=== PATIENT | male | born 1945 | race Caucasian/White ===

== ENCOUNTER 2017-07-08 14:25 | Day surgery (SDC) | payer MEDICARE, MEDICAID ==
[~2017-07-08] VITALS: Ht 185.4 cm; Wt 78.7 kg
[2017-07-08 15:00] VITALS: BP 107/69
[2017-07-08] MEDS ORDERED: LORazepam 0.5 MG tablet PO PRN (15:25)
[2017-07-08] MEDS ORDERED: LIDOcaine/PRILOcaine 5gm cream TP ONE (15:25)
[2017-07-08] MEDS ORDERED: normal saline 1000ml 1,000 ML IV SCH ×2 (15:25→19:20)
[2017-07-08] MEDS ORDERED: diphenhydrAMINE 25mg capsule PO PRN (15:25)
[2017-07-08] MEDS ORDERED: HYDR200T84 PO (15:54)
[2017-07-08] MEDS ORDERED: [UNRECOGNIZED DRUG - REMARK] PO (15:54)
[2017-07-08] MEDS ORDERED: FLO0.4C PO (15:54)
[2017-07-08] MEDS ORDERED: LEVO137T24 PO (15:54)
[2017-07-08] MEDS ORDERED: FISH12002 PO (15:54)
[2017-07-08] MEDS ORDERED: CHOL2000 PO (15:54)
[2017-07-08] MEDS ORDERED: GLUC-172 PO (15:54)
[2017-07-08] MEDS ORDERED: iohexol 350MG/ML 100ml bottle IV ONE (17:24)
[2017-07-08] MEDS ORDERED: verapamil 2.5 mg/ml inj IV ONE (17:24)
[2017-07-08] MEDS ORDERED: LIDOcaine 1%/PF (10mg/ml) 5ml vial ONE (17:24)
[2017-07-08] MEDS ORDERED: nitroGLYCERIN-Tridil 50MG/D5W 250 ML IV ONE (17:24)
[2017-07-08] MEDS ORDERED: heparin 1,000unit/ml 10ml vial 10 ML ONE (17:24)
[2017-07-08] MEDS ORDERED: proCHLORperazine 10 MG/2 ml inj ONE (17:38)
[2017-07-08] MEDS ORDERED: midazolam 2 mg/2 ml injection ONE ×2 (17:39→17:54)
[2017-07-08] MEDS ORDERED: fentaNYL/PF 50MCG/1 ML 2ML syringe ONE (17:39)
[2017-07-08 18:45] VITALS: BP 98/77
[2017-07-08 19:00] VITALS: BP 128/77
[2017-07-08 19:15] VITALS: BP 137/80
[2017-07-08] MEDS ORDERED: ondansetron/PF 4mg/2ml inj IV PRN (19:20)
[2017-07-08] MEDS ORDERED: HYDROcodone/acetaminophen 5mg/325mg tablet PO PRN (19:20)
[2017-07-08] MEDS ORDERED: HYDROcodone/acetaminophen 10/325mg tab PO PRN (19:20)
[2017-07-08] MEDS ORDERED: proCHLORperazine 10 MG/2 ml inj IV PRN (19:20)
[2017-07-08] MEDS ORDERED: OXAZEpam 15mg capsule PO PRN (19:20)
[2017-07-08 19:30] VITALS: BP 125/87
[2017-07-08 19:45] VITALS: BP 115/79
== END 2017-07-08 20:00 | disposition home or self-care (01) ==
LOC: SSTAY O 14:25
PROVIDERS: ATTEND Internal Medicine Interventional Cardiology
DX: I25.10 Atherosclerotic heart disease of native coronary artery without angina pectoris (principal); E78.5 Hyperlipidemia, unspecified; N40.0 Benign prostatic hyperplasia without lower urinary tract symptoms; E03.9 Hypothyroidism, unspecified; M16.11 Unilateral primary osteoarthritis, right hip; F10.21 Alcohol dependence, in remission; Z87.891 Personal history of nicotine dependence; Z98.890 Other specified postprocedural states; Z79.899 Other long term (current) drug therapy
CPT/HCPCS: 93005; 93458; 99152; 99153; A6257; A6258; A6402; C1769; J0780; J1644; J2001; J2250; J3010; J3490; J7030; Q0163; Q9967; A4620

== ENCOUNTER 2018-03-07 05:07 | Day surgery (SDC) | payer MEDICARE, MEDICAID ==
[2018-02-27 11:42] LABS: BASOPHILS % (AUTO) 0.2 % (0-1); EOSINOPHILS # (AUTO) 0.3 X10'3 (0-0.9); EOSINOPHILS % (AUTO) 2.7 % (0-6); LYMPHOCYTES # (AUTO) 1.7 X10'3 (1.1-4.8); LYMPHOCYTES % (AUTO) 18.3 % (21-51); MEAN CORPUSCULAR HEMOGLOBIN 31.2 PG (27.0-31.0); MEAN CORPUSCULAR HGB CONC 33.4 % (33.0-36.5); MEAN CORPUSCULAR VOLUME 93.6 FL (78-98); MEAN PLATELET VOLUME 8.3 FL (7.4-10.4); MONOCYTES # (AUTO) 0.5 X10'3 (0-0.9); MONOCYTES % (AUTO) 5.9 % (2-12); NEUTROPHILS # (AUTO) 6.8 X10'3 (1.8-7.7); NEUTROPHILS % (AUTO) 72.9 % (42-75); PRE OP HEMATOCRIT 45.4 % (42.0-52.0); PRE OP HEMOGLOBIN 15.2 g/dL (14.0-17.9); PRE OP PLATELET COUNT 297 X10'3 (140-440); RED BLOOD COUNT 4.85 X10'6 (4.70-6.10); RED CELL DISTRIBUTION WIDTH 13.7 % (11.5-14.5)
[2018-02-27 11:58] LABS: ALBUMIN 3.4 G/DL (3.4-5.0); ALKALINE PHOSPHATASE 67 IU/L (46-116); BLOOD UREA NITROGEN 25 MG/DL (7-18); BUN/CREATININE RATIO 17.5 (5.4-32.0); CALCIUM 8.9 MG/DL (8.5-10.1); CHLORIDE 107 MMOL/L (99-107); CREATININE 1.43 MG/DL (0.60-1.10); PRE OP ALT 30 U/L (30-65); PRE OP ANION GAP 6 (8-16); PRE OP AST 15 U/L (10-37); PRE OP BILIRUB, TOTAL 0.4 MG/DL (0.0-1.0); PRE OP POTASSIUM 4.3 MMOL/L (3.4-5.1); PRE OP SODIUM 141 MMOL/L (135-145); TOTAL CARBON DIOXIDE 28.2 MMOL/L (24-32); TOTAL PROTEIN 6.9 G/DL (6.4-8.2); eGFR 48 ML/MIN
[2018-02-27 12:12] LABS: PRE OP GLUCOSE 85 MG/DL (70-104)
[~2018-03-07] VITALS: Ht 185.4 cm; Wt 83.9 kg
[~2018-03-07 05:07] MED LIST: DICL100G15 TOP; LEVO137T24 PO; ringers solution, lacted 1,000 ML IV SCH
[2018-03-07] MEDS ORDERED: cefazolin/dext.iso 2gm/50ml 50 ML IV ONE (05:30)
[2018-03-07] MEDS ORDERED: famotidine 20mg tablet PO ONE (05:30)
[2018-03-07] MEDS ORDERED: LIDOcaine 1% (10mg/ml) 2ml vial ONE (05:53)
[2018-03-07 06:23] VITALS: BP 157/99
[2018-03-07 06:24] VITALS: BP 157/99
[2018-03-07] MEDS ORDERED: BUPIVAcaine/PF 2.5mg/ml (0.25%) 10ml vial ONE (06:36)
[2018-03-07] MEDS ORDERED: LIDOcaine 1% 30ml preserv. free vial ONE (07:46)
[2018-03-07] MEDS ORDERED: fentaNYL/PF 50MCG/1 ML 2ML syringe ONE (07:47)
[2018-03-07] MEDS ORDERED: MIDAZolam 5mg/5ml vial ONE (07:48)
[2018-03-07] MEDS ORDERED: ketorolac trometh. 30mg/ml inj. ONE (07:50)
[2018-03-07] MEDS ORDERED: 0.9 % SODIUM CHLORIDE 10 ML VIAL ONE (07:58)
[2018-03-07] MEDS ORDERED: ketamine 50mg/5ml syringe ONE (08:12)
[2018-03-07] MEDS ORDERED: ringers solution, lacted 1,000 ML IV SCH (08:21)
[2018-03-07] MEDS ORDERED: meperidine/PF 25mg/ml syringe IV PRN ×3 (08:25)
[2018-03-07] MEDS ORDERED: ondansetron/PF 4mg/2ml inj IV PRN (08:25)
[2018-03-07] MEDS ORDERED: proCHLORperazine 10 MG/2 ml inj IV PRN (08:25)
[2018-03-07] MEDS ORDERED: morphine 4 MG/ML inj SYRINge IV PRN ×2 (08:25)
[2018-03-07 08:44] VITALS: BP 162/91
[2018-03-07 08:54] VITALS: BP 150/78
[2018-03-07 09:04] VITALS: BP 132/71
[2018-03-07 09:14] VITALS: BP 143/72
== END 2018-03-07 09:24 | disposition home or self-care (01) ==
LOC: PAS 05:07
PROVIDERS: ATTEND Orthopaedic Surgery Hand Surgery
DX: M66.241 Spontaneous rupture of extensor tendons, right hand (principal); I25.2 Old myocardial infarction; M16.0 Bilateral primary osteoarthritis of hip; E03.9 Hypothyroidism, unspecified; N40.0 Benign prostatic hyperplasia without lower urinary tract symptoms; Z87.891 Personal history of nicotine dependence; Z72.89 Other problems related to lifestyle; Z90.49 Acquired absence of other specified parts of digestive tract; Z87.01 Personal history of pneumonia (recurrent); Z93.3 Colostomy status; Z79.2 Long term (current) use of antibiotics; Z96.641 Presence of right artificial hip joint; Z79.891 Long term (current) use of opiate analgesic; Z79.1 Long term (current) use of non-steroidal anti-inflammatories (NSAID); Z79.899 Other long term (current) drug therapy; Z98.890 Other specified postprocedural states; Z82.49 Family history of ischemic heart disease and other diseases of the circulatory system
CPT/HCPCS: 26410; 26480; 36415; 80053; 85025; 93005; A6222; A6449; J0690; J1885; J2250; J3010; J3490; J7120; A7000